=== PATIENT | male | born 1970 ===

== ENCOUNTER 2020-11-07 01:40 | Emergency (ER) | payer OTHER ==
[~2020-11-07] VITALS: Ht 182.9 cm; Wt 94.7 kg
--- NOTE | 2020-11-07 01:52 | NUR ---
UNABLE TO COMPLETE CLINICAL SCREEN AT THIS TIME.
[2020-11-07 03:08] LABS: BASOPHILS % (AUTO) 1 % (0-1); EOSINOPHILS % (AUTO) 2 % (1-7); LYMPHOCYTES % (AUTO) 28 % (22-44); MEAN CORPUSCULAR HEMOGLOBIN 31.5 pg (27.5-34.5); MEAN CORPUSCULAR HGB CONC 34.4 g/dL (33.2-36.2); MEAN PLATELET VOLUME 8.4 fL (7.4-10.4); MONOCYTES % (AUTO) 6 % (2-9); NEUTROPHILS % (AUTO) 64 % (42-75); PLATELET COUNT 270 x10^3/uL (130-400); RED CELL DISTRIBUTION WIDTH 13.5 % (9.4-14.8)
[2020-11-07 03:14] LABS: ALANINE AMINOTRANSFERASE 34 U/L (12-78); ALBUMIN 3.9 g/dL (3.4-5.0); ANION GAP 9 mmol/L (5-15); CALCIUM 8.5 mg/dL (8.5-10.1); CHLORIDE 99 mmol/L (98-107); SALICYLATE LEVEL 1.8 mg/dL (2.8-20.0)
[2020-11-07 03:17] LABS: ALKALINE PHOSPHATASE 104 U/L (45-117); BILIRUBIN,TOTAL 0.2 mg/dL (0.2-1.0); CREATININE 1.02 mg/dL (0.7-1.3); TOTAL PROTEIN 7.2 g/dL (6.4-8.2)
--- NOTE | 2020-11-07 03:42 | NUR ---
GIRLFRIEND AT BEDSIDE.
[2020-11-07] MEDS ORDERED: THIAMINE 100MG TABLET PO ONE (04:00)
--- NOTE | 2020-11-07 06:57 | NUR ---
REPORT GIVEN TO ART PATLE
[2020-11-07 07:04] VITALS: BP 118/55
--- NOTE | 2020-11-07 07:04 | NUR ---
PT SLEEPING IN BED, CALL LIGHT IN REACH. VSS
== END 2020-11-07 09:11 | disposition left against medical advice (07) ==
LOC: ED 09:05
DX: F10.220 Alcohol dependence with intoxication, uncomplicated (principal); Y90.0 Blood alcohol level of less than 20 mg/100 ml
CPT/HCPCS: 36415; 80053; 80299; 80320; 80329; 85025; 99283; G0480